=== PATIENT | male | born 1945 | race Caucasian/White ===

== ENCOUNTER 2016-12-16 09:11 | Outpatient (CLI) | payer MEDICARE | END 2016-12-16 09:12 | disposition home or self-care (01) | DX: R10.9 Unspecified abdominal pain (principal); I10 Essential (primary) hypertension; E78.5 Hyperlipidemia, unspecified; Z12.5 Encounter for screening for malignant neoplasm of prostate ==

== ENCOUNTER 2017-01-10 10:34 | Observation (INO) | payer MEDICARE ==
[2017-01-10] MEDS ORDERED: GADOBUTROL 15 MMOL/15 ML VIAL IVP ONE (17:29)
[2017-01-10] MEDS ORDERED: ASPIRIN CHEW 81 MG TABLET PO STA (19:17)
[2017-01-10] MEDS ORDERED: ASPIRIN CHEW 81 MG TABLET ONE ×2 (19:40→20:25)
[2017-01-10] MEDS ORDERED: IOPAMIDOL-300 100 ML VIAL IVP ONE (21:17)
[2017-01-10] MEDS ORDERED: SODIUM CHLORIDE FLUSH 0.9% 10 ML SYRINGE IVP PRN (22:36)
[2017-01-10] MEDS ORDERED: ACETAMINOPHEN 325 MG TABLET PO PRN (22:36)
[2017-01-10] MEDS ORDERED: SODIUM CHLORIDE 0.9% 1,000 ML IV SCH (23:00)
[2017-01-10] MEDS ORDERED: CLOPIDOGREL 75 MG TABLET PO SCH (23:59)
[2017-01-11] MEDS ORDERED: SODIUM CHLORIDE FLUSH 0.9% 10 ML SYRINGE IVP SCH (06:00)
[2017-01-11] MEDS ORDERED: ASPIRIN EC 81 MG TABLET PO SCH (09:00)
[2017-01-11] MEDS ORDERED: POLYETHYLENE GLYCOL 3350 17 GM PACKET PO SCH (09:00)
[2017-01-11] MEDS ORDERED: ENOXAPARIN 40 MG/0.4 ML SYRINGE SUBQ SCH (09:00)
[2017-01-11] MEDS ORDERED: CLOPIDOGREL 75 MG TABLET PO SCH (09:00)
[2017-01-11] MEDS ORDERED: PRAVASTATIN 40 MG TABLET PO SCH (21:00)
== END 2017-01-11 11:46 | disposition home or self-care (01) ==
DX: H49.21 Sixth [abducent] nerve palsy, right eye (principal); I10 Essential (primary) hypertension; E78.5 Hyperlipidemia, unspecified; I48.91 Unspecified atrial fibrillation; I65.1 Occlusion and stenosis of basilar artery; L98.9 Disorder of the skin and subcutaneous tissue, unspecified; R74.8 Abnormal levels of other serum enzymes; E66.9 Obesity, unspecified; Z68.33 Body mass index [BMI] 33.0-33.9, adult; Z85.828 Personal history of other malignant neoplasm of skin
CPT/HCPCS: 36415; 70450; 70496; 70549; 70553; 80053; 80061; 80074; 81003; 83036; 83690; 83721; 84443; 85025; 85610; 85651; 85730; 86141; 93005; 93010; 93306; 96372; 99284; A9270; A9585; G0378; J1650; Q9967

== ENCOUNTER 2018-02-23 23:59 | Outpatient (CLI) | payer MEDICARE ==
[2018-02-23 18:02] LABS: BASOPHILS # (AUTO) 0.1 10^3/uL (0.0-0.1); BASOPHILS % (AUTO) 0.8 %; EOSINOPHILS # (AUTO) 0.4 10^3/uL (0.0-0.7); EOSINOPHILS % (AUTO) 5.5 %; HGB - HEMOGLOBIN 12.9 g/dL (14.0-18.0); LYMPHOCYTES # (AUTO) 1.8 10^3/uL (1.5-3.5); MEAN CORPUSCULAR HEMOGLOBIN 30.2 pg (27.0-31.0); MEAN CORPUSCULAR HGB CONC 33.6 g/dL (32.0-36.0); MEAN CORPUSCULAR VOLUME 90.1 fL (80.0-94.0); MEAN PLATELET VOLUME 8.9 fL (7.4-11.4); MONOCYTES # (AUTO) 0.7 10^3/uL (0.0-1.0); MONOCYTES % (AUTO) 9.1 %; NEUTROPHILS # (AUTO) 4.7 10^3/uL (1.5-6.6); NEUTROPHILS % (AUTO) 61.6 %; PLT - PLATELET COUNT 186 10^3/uL (130-450); RED BLOOD COUNT 4.27 10^6/uL (4.70-6.10); RED CELL DISTRIBUTION WIDTH 13.2 % (12.0-15.0); WHITE BLOOD COUNT 7.6 x10^3/uL (4.8-10.8)
[2018-02-23 18:17] LABS: ALBUMIN 4.1 g/dL (3.2-5.5); ALBUMIN/GLOBULIN RATIO 1.1 (1.0-2.2); ALKALINE PHOSPHATASE 57 IU/L (42-121); ALT ALANINE AMINOTRANSFERASE 49 IU/L (10-60); AST ASPARTATE AMINOTRANSFERASE 41 IU/L (10-42); BUN - BLOOD UREA NITROGEN 18 mg/dL (6-20); CALCIUM 9.2 mg/dL (8.5-10.3); CARBON DIOXIDE - CO2 27 mmol/L (21-32); CHLORIDE 101 mmol/L (101-111); CHOL/HDL RATIO 5.3 (<5.0); CHOLESTEROL 132 mg/dL; CREATININE 0.8 mg/dL (0.6-1.2); GFR - MDRD 94 (>89); GLUCOSE 121 mg/dL (70-100); HDL CHOLESTEROL 25 mg/dL; LDL CHOLESTEROL,CALCULATED 40 mg/dL; LDL/HDL RATIO 1.6 (<3.6); SODIUM 135 mmol/L (135-145); TOTAL PROTEIN 7.8 g/dL (6.7-8.2); VLDL CHOLESTEROL 67 mg/dL
== END 2018-02-24 | disposition home or self-care (01) ==
LOC: LAB.S 23:59
PROVIDERS: ATTEND Nurse Practitioner Family
DX: I10 Essential (primary) hypertension (principal); E78.1 Pure hyperglyceridemia; E78.5 Hyperlipidemia, unspecified; Z12.5 Encounter for screening for malignant neoplasm of prostate
CPT/HCPCS: 36415; 80053; 80061; 84443; 85025; G0103; 83721; 84153

== ENCOUNTER 2018-03-02 08:00 | Outpatient (CLI) | payer MEDICARE ==
[2018-03-02 20:10] LABS: HB2 TOTAL 14.5 g/dL; HEMOGLOBIN A1C 0.58 g/dL; HEMOGLOBIN A1C % 5.8 % (4.6-6.2)
== END 2018-03-02 08:01 | disposition home or self-care (01) ==
LOC: LAB.S 08:00
PROVIDERS: ATTEND Nurse Practitioner Family
DX: R73.9 Hyperglycemia, unspecified (principal)
CPT/HCPCS: 36415; 83036

== ENCOUNTER 2018-03-06 08:00 | Outpatient (CLI) | payer MEDICARE | END 2018-03-06 23:59 | disposition home or self-care (01) | LOC: LAB.R 08:00 | PROVIDERS: ATTEND Nurse Practitioner Family | DX: D64.9 Anemia, unspecified (principal) | CPT/HCPCS: 82270 ==

== ENCOUNTER 2018-10-30 10:09 | Outpatient (CLI) | payer MEDICARE ==
[2018-10-30 17:56] LABS: CALCIUM 9.4 mg/dL (8.5-10.3)
[2018-10-30 17:57] LABS: BASOPHILS % (AUTO) 0.6 %; EOSINOPHILS # (AUTO) 0.3 10^3/uL (0.0-0.7); EOSINOPHILS % (AUTO) 5.2 %; HGB - HEMOGLOBIN 13.5 g/dL (14.0-18.0); LYMPHOCYTES # (AUTO) 1.6 10^3/uL (1.5-3.5); MEAN CORPUSCULAR HEMOGLOBIN 31.2 pg (27.0-31.0); MEAN CORPUSCULAR HGB CONC 34.2 g/dL (32.0-36.0); MEAN CORPUSCULAR VOLUME 91.2 fL (80.0-94.0); MONOCYTES # (AUTO) 0.7 10^3/uL (0.0-1.0); MONOCYTES % (AUTO) 11.2 %; NEUTROPHILS # (AUTO) 3.8 10^3/uL (1.5-6.6); PLT - PLATELET COUNT 196 10^3/uL (130-450); RED BLOOD COUNT 4.32 10^6/uL (4.70-6.10); RED CELL DISTRIBUTION WIDTH 13.5 % (12.0-15.0); WHITE BLOOD COUNT 6.5 x10^3/uL (4.8-10.8)
== END 2018-10-30 10:10 | disposition home or self-care (01) ==
LOC: LAB.F 10:09
PROVIDERS: ATTEND Orthopaedic Surgery
DX: Z01.818 Encounter for other preprocedural examination (principal)
CPT/HCPCS: 36415; 80048; 85025

== ENCOUNTER 2019-07-19 07:37 | Outpatient (CLI) | payer MEDICARE ==
[2019-07-19 10:27] LABS: ALBUMIN 4.1 g/dL (3.2-5.5); ALBUMIN/GLOBULIN RATIO 1.1 (1.0-2.2); ALKALINE PHOSPHATASE 63 IU/L (42-121); ALT ALANINE AMINOTRANSFERASE 49 IU/L (10-60); AST ASPARTATE AMINOTRANSFERASE 42 IU/L (10-42); BILIRUBIN,TOTAL 0.7 mg/dL (0.2-1.0); BUN - BLOOD UREA NITROGEN 17 mg/dL (6-20); CALCIUM 9.4 mg/dL (8.5-10.3); CARBON DIOXIDE - CO2 27 mmol/L (21-32); CHLORIDE 103 mmol/L (101-111); CHOL/HDL RATIO 3.8 (<5.0); CHOLESTEROL 120 mg/dL; GFR - MDRD 73 (>89); GLUCOSE 124 mg/dL (70-100); HDL CHOLESTEROL 32 mg/dL; LDL CHOLESTEROL,CALCULATED 28 mg/dL; LDL/HDL RATIO 0.9 (<3.6); SODIUM 139 mmol/L (135-145); TOTAL PROTEIN 7.7 g/dL (6.7-8.2); VLDL CHOLESTEROL 60 mg/dL
== END 2019-07-19 07:38 | disposition home or self-care (01) ==
LOC: LAB.S 07:37
PROVIDERS: ATTEND Internal Medicine
DX: B35.1 Tinea unguium (principal); E78.1 Pure hyperglyceridemia
CPT/HCPCS: 36415; 80053; 80061; 83721

== ENCOUNTER 2020-01-06 09:08 | Outpatient (CLI) | payer MEDICARE ==
[2020-01-06 17:52] LABS: ALBUMIN/GLOBULIN RATIO 1.2 (1.0-2.2); ALKALINE PHOSPHATASE 62 IU/L (42-121); ALT ALANINE AMINOTRANSFERASE 53 IU/L (10-60); AST ASPARTATE AMINOTRANSFERASE 44 IU/L (10-42); BILIRUBIN,TOTAL 0.6 mg/dL (0.2-1.0); BUN - BLOOD UREA NITROGEN 15 mg/dL (6-20); CALCIUM 9.3 mg/dL (8.5-10.3); CARBON DIOXIDE - CO2 30 mmol/L (21-32); CHLORIDE 102 mmol/L (101-111); CHOL/HDL RATIO 4.1 (<5.0); CHOLESTEROL 130 mg/dL; CREATININE 0.8 mg/dL (0.6-1.2); GFR - MDRD 94 (>89); GLUCOSE 128 mg/dL (70-100); HDL CHOLESTEROL 32 mg/dL; LDL CHOLESTEROL,CALCULATED 35 mg/dL; LDL/HDL RATIO 1.1 (<3.6); SODIUM 139 mmol/L (135-145); TOTAL PROTEIN 7.4 g/dL (6.7-8.2); VLDL CHOLESTEROL 63 mg/dL
[2020-01-06 18:18] LABS: HB2 TOTAL 13.7 g/dL; HEMOGLOBIN A1C 0.57 g/dL
== END 2020-01-06 09:09 | disposition home or self-care (01) ==
LOC: LAB.S 09:08
PROVIDERS: ATTEND Internal Medicine
DX: E78.1 Pure hyperglyceridemia (principal); R73.02 Impaired glucose tolerance (oral); Z12.5 Encounter for screening for malignant neoplasm of prostate
CPT/HCPCS: 36415; 80053; 80061; 83036; G0103; 83721; 84153

== ENCOUNTER 2021-08-13 08:00 | Outpatient (CLI) | payer MEDICARE ==
[2021-08-13 14:57] LABS: BASOPHILS # (AUTO) 0.1 10^3/uL (0.0-0.1); BASOPHILS % (AUTO) 1.1 %; EOSINOPHILS # (AUTO) 0.2 10^3/uL (0.0-0.7); EOSINOPHILS % (AUTO) 4.2 %; HCT - HEMATOCRIT 40.3 % (42.0-52.0); LYMPHOCYTES # (AUTO) 1.8 10^3/uL (1.5-3.5); LYMPHOCYTES % (AUTO) 32.4 %; MEAN CORPUSCULAR HEMOGLOBIN 30.7 pg (27.0-31.0); MEAN CORPUSCULAR HGB CONC 32.3 g/dL (32.0-36.0); MEAN CORPUSCULAR VOLUME 95.3 fL (80.0-94.0); MEAN PLATELET VOLUME 11.6 fL (7.4-11.4); MONOCYTES # (AUTO) 0.7 10^3/uL (0.0-1.0); MONOCYTES % (AUTO) 11.4 %; NEUTROPHILS # (AUTO) 2.9 10^3/uL (1.5-6.6); NEUTROPHILS % (AUTO) 50.4 %; PLT - PLATELET COUNT 180 10^3/uL (130-450); RED BLOOD COUNT 4.23 10^6/uL (4.70-6.10); RED CELL DISTRIBUTION WIDTH 13.4 % (12.0-15.0); WHITE BLOOD COUNT 5.7 x10^3/uL (4.8-10.8)
[2021-08-13 15:45] LABS: ALBUMIN 3.9 g/dL (3.2-5.5); ALKALINE PHOSPHATASE 57 IU/L (42-121); ALT ALANINE AMINOTRANSFERASE 50 IU/L (10-60); AST ASPARTATE AMINOTRANSFERASE 55 IU/L (10-42); BILIRUBIN,TOTAL 1.2 mg/dL (0.2-1.0); BUN - BLOOD UREA NITROGEN 17 mg/dL (6-20); CALCIUM 9.1 mg/dL (8.5-10.3); CARBON DIOXIDE - CO2 27 mmol/L (21-32); CHLORIDE 102 mmol/L (101-111); CHOL/HDL RATIO 4.2 (<5.0); CHOLESTEROL 140 mg/dL; CREATININE 0.9 mg/dL (0.6-1.2); GFR - MDRD 82 (>89); GLUCOSE 115 mg/dL (70-100); HDL CHOLESTEROL 33 mg/dL; LDL CHOLESTEROL,CALCULATED 34 mg/dL; POTASSIUM 4.2 mmol/L (3.5-5.0); SODIUM 138 mmol/L (135-145); TOTAL PROTEIN 7.7 g/dL (6.7-8.2); TRIGLYCERIDES 363 mg/dL; VLDL CHOLESTEROL 73 mg/dL
== END 2021-08-13 08:01 | disposition home or self-care (01) ==
LOC: LAB.S 08:00
PROVIDERS: ATTEND Internal Medicine
DX: I10 Essential (primary) hypertension (principal); E78.1 Pure hyperglyceridemia; N41.9 Inflammatory disease of prostate, unspecified
CPT/HCPCS: 36415; 80053; 80061; 83721; 84153; 85025

== ENCOUNTER 2021-09-11 08:49 | Outpatient (CLI) | payer MEDICARE ==
[2021-09-11 15:13] LABS: BASOPHILS % (AUTO) 0.6 %; EOSINOPHILS # (AUTO) 0.3 10^3/uL (0.0-0.7); EOSINOPHILS % (AUTO) 4.6 %; HCT - HEMATOCRIT 40.7 % (42.0-52.0); HGB - HEMOGLOBIN 13.3 g/dL (14.0-18.0); LYMPHOCYTES # (AUTO) 1.6 10^3/uL (1.5-3.5); LYMPHOCYTES % (AUTO) 26.1 %; MEAN CORPUSCULAR HEMOGLOBIN 30.8 pg (27.0-31.0); MEAN CORPUSCULAR HGB CONC 32.7 g/dL (32.0-36.0); MEAN CORPUSCULAR VOLUME 94.2 fL (80.0-94.0); MEAN PLATELET VOLUME 11.2 fL (7.4-11.4); MONOCYTES # (AUTO) 0.6 10^3/uL (0.0-1.0); MONOCYTES % (AUTO) 10.3 %; NEUTROPHILS # (AUTO) 3.6 10^3/uL (1.5-6.6); NEUTROPHILS % (AUTO) 58.2 %; PLT - PLATELET COUNT 178 10^3/uL (130-450); RED BLOOD COUNT 4.32 10^6/uL (4.70-6.10); RED CELL DISTRIBUTION WIDTH 13.3 % (12.0-15.0); WHITE BLOOD COUNT 6.2 x10^3/uL (4.8-10.8)
[2021-09-11 15:42] LABS: ALBUMIN 4.1 g/dL (3.2-5.5); ALBUMIN/GLOBULIN RATIO 1.2 (1.0-2.2); BILIRUBIN,TOTAL 0.9 mg/dL (0.2-1.0); CALCIUM 9.3 mg/dL (8.5-10.3); CREATININE 0.8 mg/dL (0.6-1.2); POTASSIUM 4.1 mmol/L (3.5-5.0); TOTAL PROTEIN 7.6 g/dL (6.7-8.2)
== END 2021-09-11 08:50 | disposition home or self-care (01) ==
LOC: LAB.S 08:49
PROVIDERS: ATTEND Internal Medicine
DX: Z01.812 Encounter for preprocedural laboratory examination (principal)
CPT/HCPCS: 36415; 80053; 85025

== ENCOUNTER 2021-09-21 13:11 | Outpatient (CLI) | payer MEDICARE | END 2021-09-21 13:12 | disposition home or self-care (01) | LOC: COV 13:11 | PROVIDERS: ATTEND Internal Medicine | DX: Z01.812 Encounter for preprocedural laboratory examination (principal); Z20.822 Contact with and (suspected) exposure to COVID-19 ==

== ENCOUNTER 2022-03-18 12:14 | Outpatient (CLI) | payer MEDICARE ==
--- NOTE | 2022-03-18 17:24 | SLEEP CARE CONSULTATION ---
Information from patient questionnaire entered by Madie Hendrickson. I have reviewed and concur with the information entered by Madie Hendrickson. This document represents the service I personally performed and the decisions made by me, Adilene Arzate MD, [facility]. History of Present Illness Service Date and Time: 03/18/2022 1214 Reason for Visit: New patient (ON CPAP) Additional HPI information: I had the pleasure of seeing Mr. Poe along with his today regarding obstructive sleep apnea-hypopnea. As you know, he is a 76 year old gentleman who was diagnosed with the sleep-disordered breathing about 6 years ago in [place] and put on a BiPAP. He said he tried to get the records from the sleep physician there but he as since retired. He is BiPAP is now 6 years old and being recalled. He wears nasal pillows. He gets his supplies from [employer]. He reports significant improvement on the treatment. Past Medical History Past Medical History: reports: Hypertension Social History The patient's occupation is a SE. Patient is and lives in [place]. Allergies and Home Medications Drug allergies reviewed: Yes Home medication list reviewed: Yes Allergy and home medication list: Allergies No Known Drug Allergies Allergy (Verified 01/10/17 10:41) Physical Exam Height: 5 ft 7 in Impression and Plan Obstructive Sleep Apnea-Hypopnea Syndrome, as previously diagnosed. The severity is unknown as we do not have his records. According to him, he has good treatment compliance and significant improvement. The treatment efficacy is not available. His BiPAP is certainly old enough to be replace. However, a new in-laboratory polysomnography will have to be performed to confirm the diagnosis and its severity. Plan: 1. Schedule an in-laboratory polysomnography. 2. Do not use the BiPAP one night prior to the sleep study. 3. Return for follow up after the sleep study. Prescriptions: Other (in-lab polysomnography) Follow up with Sleep Care in: 1-2 months Visit Type: Telehealth Video (PHONE# [phone]) Video Type: Doximity Patient Location: Home Location of Provider: Home Patient agrees and consents to this telehealth visit type: Yes Patient agrees to have their insurance billed: Yes Time Spent with Patient (minutes): 12 Provider Statement: I spent 100% of the Telehealth Video Call with the patient with greater than 50% spent counseling the patient and coordination of care.
== END 2022-03-18 12:15 | disposition home or self-care (01) ==
LOC: SC 12:14
PROVIDERS: ATTEND Internal Medicine Pulmonary Disease
DX: G47.33 Obstructive sleep apnea (adult) (pediatric) (principal)

== ENCOUNTER 2022-11-20 09:00 | Outpatient (CLI) | payer MEDICARE ==
[2022-11-20 17:02] LABS: BASOPHILS % (AUTO) 0.6 %; EOSINOPHILS # (AUTO) 0.3 10^3/uL (0.0-0.7); EOSINOPHILS % (AUTO) 4.4 %; HCT - HEMATOCRIT 40.7 % (42.0-52.0); HGB - HEMOGLOBIN 12.9 g/dL (14.0-18.0); LYMPHOCYTES # (AUTO) 1.7 10^3/uL (1.5-3.5); MEAN CORPUSCULAR HEMOGLOBIN 29.7 pg (27.0-31.0); MEAN CORPUSCULAR HGB CONC 31.7 g/dL (32.0-36.0); MEAN CORPUSCULAR VOLUME 93.8 fL (80.0-94.0); MEAN PLATELET VOLUME 10.7 fL (7.4-11.4); MONOCYTES % (AUTO) 14.9 %; NEUTROPHILS # (AUTO) 3.4 10^3/uL (1.5-6.6); NEUTROPHILS % (AUTO) 52.8 %; PLT - PLATELET COUNT 174 10^3/uL (130-450); RED BLOOD COUNT 4.34 10^6/uL (4.70-6.10); RED CELL DISTRIBUTION WIDTH 13.1 % (12.0-15.0); WHITE BLOOD COUNT 6.4 x10^3/uL (4.8-10.8)
[2022-11-20 17:54] LABS: ALBUMIN 3.8 g/dL (3.2-5.5); ALBUMIN/GLOBULIN RATIO 1.1 (1.0-2.2); ALKALINE PHOSPHATASE 73 IU/L (42-121); ALT ALANINE AMINOTRANSFERASE 68 IU/L (10-60); AST ASPARTATE AMINOTRANSFERASE 54 IU/L (10-42); BILIRUBIN,TOTAL 0.8 mg/dL (0.2-1.0); BUN - BLOOD UREA NITROGEN 18 mg/dL (6-20); CALCIUM 9.1 mg/dL (8.5-10.3); CARBON DIOXIDE - CO2 30 mmol/L (21-32); CHLORIDE 99 mmol/L (101-111); CHOL/HDL RATIO 2.6 (<5.0); CHOLESTEROL 95 mg/dL; GFR - MDRD 72 (>89); GLUCOSE 125 mg/dL (70-100); HDL CHOLESTEROL 36 mg/dL; LDL CHOLESTEROL,CALCULATED 3 mg/dL; LDL/HDL RATIO 0.1 (<3.6); POTASSIUM 3.8 mmol/L (3.5-5.0); SODIUM 136 mmol/L (135-145); TOTAL PROTEIN 7.4 g/dL (6.7-8.2); TRIGLYCERIDES 279 mg/dL; VLDL CHOLESTEROL 56 mg/dL
== END 2022-11-20 09:01 | disposition home or self-care (01) ==
LOC: LAB.S 09:00
PROVIDERS: ATTEND Registered Nurse
DX: E78.1 Pure hyperglyceridemia (principal); Z79.899 Other long term (current) drug therapy
CPT/HCPCS: 36415; 80053; 80061; 83721; 85025

== ENCOUNTER 2023-12-09 07:00 | Outpatient (CLI) | payer MEDICARE ==
--- NOTE | 2023-12-09 16:56 | XRAY Report ---
PROCEDURE: Abdomen Acute INDICATIONS: ABDOMINAL BLOATING AND PAIN TECHNIQUE: 2 views of the abdomen were acquired. COMPARISON: X-ray abdomen 12/16/2016 FINDINGS: Surgical changes and devices: None. Chest: Lungs are clear. Heart size is normal. No pleural effusions. No pneumoperitoneum. Bowel: No pneumoperitoneum. The bowel gas pattern is normal. Moderate colonic stool. Soft tissues: No masses; visualized solid organ contours appear normal in size. No suspicious abdom inal calcifications. Bones: No suspicious bony abnormalities. IMPRESSION: Moderate colonic stool consistent constipation. No obstruction. Reviewed by: Kati Anderson MD on 12/09/2023 4:54 PM PST Approved by: Kati Anderson MD on 12/09/2023 4:54 PM PST Station ID: [id number]
== END 2023-12-09 23:59 | disposition home or self-care (01) ==
LOC: DI.S 07:00
PROVIDERS: ATTEND Physician Assistant Medical
DX: R14.0 Abdominal distension (gaseous) (principal); R10.30 Lower abdominal pain, unspecified

== ENCOUNTER 2023-12-09 16:48 | Emergency (ER) | payer MEDICARE ==
--- NOTE | 2023-12-09 17:45 | ED Physician Documentation ---
PD HPI ABD PAIN - Stated complaint Stated Complaint: ABD PX,BLOATING - Chief complaint Chief Complaint: Abd Pain - History obtained from History obtained from: Patient, Family - Additional information Additional information: 78-year-old gentleman with history of open heart surgery at the age of 3 for a valvular issue presents with about 2 to 3 days of abdominal pressure with suprapubic pain and bloating as well as constipation. He went to the walk-in clinic and had an x-ray showing constipation, but the PA called me and I recommended he come to the emergency department for advanced imaging especially in light of his age. He did start dry heaving this morning. No fevers. PD PAST MEDICAL HISTORY - Past Medical History Past Medical History: Yes Cardiovascular: Hypertension Respiratory: Sleep apnea, CPAP use Endocrine/Autoimmune: None GI: None : Nocturia HEENT: None Psych: None Musculoskeletal: None Derm: None - Past Surgical History Past Surgical History: No Cardiovascular: Valve replacement, Other - Present Medications Home Medications: Ambulatory Orders Medication Instructions Recorded Confirmed Losartan [Cozaar] 100 mg PO DAILY 01/10/17 01/10/17 Pravastatin [Pravachol] 40 mg PO DAILY 01/10/17 01/11/17 amLODIPine [Norvasc] 5 mg PO DAILY 01/10/17 01/10/17 hydroCHLOROthiazide 25 mg PO DAILY 01/10/17 01/11/17 [Hydrochlorothiazide] Acetaminophen [Tylenol] 650 mg PO Q4HR PRN #0 tablet 01/11/17 Albuterol Sulfate [Proair Hfa 2 puffs INH Q4H PRN 01/11/17 01/11/17 Inhaler] Aspirin 81 mg PO DAILY #60 tab.chew 01/11/17 Clopidogrel [Plavix] 75 mg PO DAILY #30 tablet 01/11/17 Fluticasone [Flonase] 2 sprays GUICHO BID 01/11/17 01/11/17 Amox/Clav 875/125 [Augmentin] 1 each PO Q12H #20 tablet 12/09/23 polyethylene glycoL 3350(BULK) 17 gm PO DAILY PRN #1 each 12/09/23 [Miralax] - Allergies Allergies/Adverse Reactions: Allergies Allergy/AdvReac Type Severity Reaction Status Date / Time No Known Drug Allergies Allergy Verified 12/09/23 17:17 - Social History Does the pt smoke?: No Smoking Status: Never smoker Does the pt drink ETOH?: No Does the pt have substance abuse?: No PD ED PE NORMAL - Vitals Vital signs reviewed: Yes - General General: Alert and oriented X 3, No acute distress - Abdomen Abdomen: Normal bowel sounds, Soft, Non tender - Extremities Extremities: No deformity, No tenderness to palpate - Neuro Neuro: Alert and oriented X 3, Normal speech Results - Vitals Vitals: Vital Signs - 24 hr 12/09/23 12/09/23 12/09/23 17:12 17:38 17:51 Temperature 36 C L Heart Rate 81 Respiratory 16 18 18 Rate Blood Pressure 150/90 H 143/77 H O2 Saturation 98 98 12/09/23 12/09/23 12/09/23 18:58 20:32 20:42 Temperature 36.6 C Heart Rate 79 84 Respiratory 18 18 17 Rate Blood Pressure 139/109 H O2 Saturation 95 94 Oxygen O2 Source Room air - Labs Labs: Laboratory Tests 12/09/23 12/09/23 18:07 18:07 WBC 10.7 RBC 4.31 L Hgb 13.0 L Hct 39.6 L MCV 91.9 MCH 30.2 MCHC 32.8 RDW 13.1 Plt Count 138 MPV 11.4 Neut # (Auto) 9.1 H Lymph # (Auto) 0.9 L Gila # (Auto) 0.6 Eos # (Auto) 0.0 Baso # (Auto) 0.0 Absolute Nucleated RBC 0.00 Nucleated RBC % 0.0 Manual Slide Review Indicated Platelet Estimate NORMAL (130-450,000) Platelet Morphology PLATELET CLUMPING RBC Morph Micro Appear NORMAL APPEARANCE Sodium 137 Potassium 3.8 Chloride 99 L Carbon Dioxide 26 Anion Gap 12.0 BUN 16 Creatinine 0.7 Estimated GFR (MDRD) 109 Glucose 155 H Calcium 9.4 Total Bilirubin 0.9 AST 34 ALT 42 Alkaline Phosphatase 62 Total Protein 7.4 Albumin 4.2 Globulin 3.2 Albumin/Globulin Ratio 1.3 Lipase 18 - Rads (name of study) CT abdomen and pelvis demonstrating obstipation, mild diverticulitis, gallstone, kidney stone, and cirrhotic liver morphology Relevant Findings:: Final report received, EMP independent interpretation of test PD Medical Decision Making - ED course ED course: 78-year-old gentleman referred from walk-in clinic for abdominal and pelvic pain with benign exam and outpatient x-ray showing constipation. Workup in the department shows a CBC showing mild normocytic anemia, CMP with normal liver enzymes and mild hyperglycemia, and CT of the abdomen and pelvis as above. Will treat with Augmentin and laxatives and incidental findings and follow-up were discussed with patient and daughter at bedside. Departure - Departure Disposition: 01 Home, Self Care Clinical Impression: Diverticulitis of gastrointestinal tract Constipation Qualifiers: Constipation type: slow transit constipation Qualified Code(s): K59.01 - Slow transit constipation Condition: Good Record reviewed to determine appropriate education?: Yes Instructions: ED Constipation, ED Diverticulitis Prescriptions: Amox/Clav 875/125 [Augmentin] 1 each PO Q12H #20 tablet polyethylene glycoL 3350(BULK) [Miralax] 17 gm PO DAILY PRN #1 each PRN Reason: Constipation Comments: As discussed, your CAT scan tonight showed a large volume of stool, a mild case of diverticulitis, some concern for cirrhotic liver morphology and both a g allstone and a kidney stone. Of the things are actually bothering you tonight I think only the constipation and diverticulitis are actually symptomatic at this point. Talk with your doctor about follow-up colonoscopy in 3 or 4 months. Avoid alcohol. Return for new or worsening symptoms. I sent your prescriptions electronically to the [facility] in [place]. Forms: PCP List
[2023-12-09] MEDS ORDERED: SODIUM CHLORIDE 0.9% 1,000 ML IV STA (17:53)
[2023-12-09 18:08] LABS: BASOPHILS % (AUTO) 0.2 %; EOSINOPHILS % (AUTO) 0.1 %; HCT - HEMATOCRIT 39.6 % (42.0-52.0); LYMPHOCYTES # (AUTO) 0.9 10^3/uL (1.5-3.5); LYMPHOCYTES % (AUTO) 8.2 %; MEAN CORPUSCULAR HEMOGLOBIN 30.2 pg (27.0-31.0); MEAN CORPUSCULAR HGB CONC 32.8 g/dL (32.0-36.0); MEAN CORPUSCULAR VOLUME 91.9 fL (80.0-94.0); MEAN PLATELET VOLUME 11.4 fL (7.4-11.4); MONOCYTES # (AUTO) 0.6 10^3/uL (0.0-1.0); MONOCYTES % (AUTO) 5.5 %; NEUTROPHILS # (AUTO) 9.1 10^3/uL (1.5-6.6); NEUTROPHILS % (AUTO) 85.7 %; PLT - PLATELET COUNT 138 10^3/uL (130-450); RED BLOOD COUNT 4.31 10^6/uL (4.70-6.10); RED CELL DISTRIBUTION WIDTH 13.1 % (12.0-15.0); WHITE BLOOD COUNT 10.7 x10^3/uL (4.8-10.8)
[2023-12-09 18:14] LABS: SLIDE REVIEW? Indicated
[2023-12-09 18:47] LABS: PLATELET ESTIMATE, MANUAL NORMAL (130-450,000) (NORMAL); PLATELET MORPHOLOGY PLATELET CLUMPING (NORMAL); RBC MORPHOLOGY (MULTIPLE) NORMAL APPEARANCE (NORMAL)
[2023-12-09 19:15] LABS: ALBUMIN 4.2 g/dL (3.2-5.5); ALBUMIN/GLOBULIN RATIO 1.3 (1.0-2.2); BILIRUBIN,TOTAL 0.9 mg/dL (0.2-1.0); CALCIUM 9.4 mg/dL (8.5-10.3); CREATININE 0.7 mg/dL (0.6-1.3); POTASSIUM 3.8 mmol/L (3.5-4.5); TOTAL PROTEIN 7.4 g/dL (6.4-8.9)
[2023-12-09] MEDS ORDERED: iohexoL-300 100 ML VIAL ONE (19:44)
[2023-12-09] MEDS ORDERED: iohexoL-300 100 ML VIAL IVP ONE (20:10)
--- NOTE | 2023-12-09 20:31 | CT Report ---
PROCEDURE: Abdomen/Pelvis W INDICATIONS: IV only, abdominal pain CONTRAST: 100mL Omni 300 TECHNIQUE: After the administration of intravenous contrast, a CT scan of the abdomen and pelvis was performed. Images were recorded and evaluated at appropriate window settings. Reformats: coronal and sagittal. F or radiation dose reduction, the following was used: automated exposure control, adjustment of mA and /or kV according to patient size. COMPARISON: None. FINDINGS: Image quality: Excellent. Lung bases and heart: Right lung base calcified granuloma. No pleural effusion. Lingular atelectasis. Liver: Liver surface appears nodular. No focal lesion identified on this single phase exam. Gallbladder and biliary tree: Within normal limits in size. Small calcified gallstone. No biliary bernadette brittaney dilatation. Spleen: Within normal limits in size measuring 12.9 cm. Pancreas: No pancreatic ductal dilation. Adrenals: No adrenal nodule. Kidneys and ureters: No convincing hydronephrosis. Nonobstructing left kidney stone measuring 0.3 cm. No renal cystic lesion which requires follow up. No solid mass. Bowel and peritoneum: Thickening and stranding at the sigmoid colon in the left lower quadrant, (2/95 ). Diverticulosis. The appendix is not dilated. No small bowel obstruction. Stomach is not dilated. S cant free fluid in the right lower quadrant. No pneumoperitoneum. Lymph nodes: No central or retroperitoneal adenopathy. Vessels: No infrarenal aortic aneurysm. Moderate to severe calcified atherosclerotic plaque. PELVIS Reproductive organs: Unremarkable. Bladder: No abnormal wall thickening, accounting for underdistention. Pelvic lymph nodes: No pelvic adenopathy by size criteria. Bones: No aggressive osseous abnormality. L1-L2 ankylosis. Multilevel DDD. Other: No-containing right inguinal hernia. IMPRESSION: 1. Mild left lower quadrant sigmoid colon diverticulitis. No abscess. 2. No bowel obstruction. No pneumoperitoneum. Scant free fluid in the right lower quadrant. 3. Cirrhotic morphology of the liver. 4. Small gallstone. Small left kidney stone. Reviewed by: Skyler Molina MD on 12/09/2023 8:29 PM PST Approved by: Skyler Molina MD on 12/09/2023 8:29 PM PST Station ID: [id number]
[2023-12-09] MEDS ORDERED: AMOX/CLAV 875 MG/125 MG TABLET PO STA (20:42)
[2023-12-09] MEDS ORDERED: MAGNESIUM CITRATE 296 ML BOTTLE PO STA (20:42)
[2023-12-09 20:45] VITALS: BP 139/109; O2SAT 94
== END 2023-12-09 21:15 | disposition home or self-care (01) ==
LOC: ED 16:48
DX: K57.92 Diverticulitis of intestine, part unspecified, without perforation or abscess without bleeding (principal); K59.01 Slow transit constipation; I10 Essential (primary) hypertension; Z79.899 Other long term (current) drug therapy; Z79.82 Long term (current) use of aspirin; Z79.02 Long term (current) use of antithrombotics/antiplatelets
CPT/HCPCS: 36415; 74177; 80053; 83690; 85025; 99284; A9270; Q9967